=== PATIENT | male | born 1975 | race Caucasian/White ===

== ENCOUNTER 2017-06-27 00:29 | Emergency (ER) | payer OTHER ==
[2017-06-27 00:32] VITALS: TEMP 98.4; BMI 35.5
[2017-06-27 01:03] VITALS: BP 156/97; PULSE 104
--- NOTE | 2017-06-27 01:13 | PDOC ---
History of Present Illness - General Chief Complaint: Irregular Heart Beat Stated Complaint: IRREG HEART BEAT Time Seen by Provider: 06/27/17 01:07 History Source: Patient Exam Limitations: No Limitations - History of Present Illness Initial Comments: 06/27/17 01:10 This is a 41-year-old male who has history of rapid A. fib who comes in complaining of acute onset of rapid A. fib approximately 1 hour prior to coming in. Patient denies any shortness of breath, chest pain. Patient is complaining of palpitations. Patient denies any nausea or diaphoresis. Patient denies any syncope or near-syncope symptoms. Patient's last episode of rapid A. fib was approximately 1 year ago. Patient has had several brief episodes most recent one was a week ago. Patient is otherwise obese and has a history of asthma. Patient's initial cardiogram when he got it showed rapid A. fib at 160 shortly thereafter he converted to a normal sinus rhythm at a rate of 105 PAST MEDICAL HISTORY: no significant history PAST SURGICAL HISTORY: no significant history FAMILY HISTORY: no pertinant history SOCIAL HISTORY: Pt lives with family and is employed. MEDICATIONS: reviewed ALLERGIES: As per nursing notes Review of Systems General: No fevers or chills, no weakness, no weight loss HEENT: No change in vision. No sore throat,. No ear pain CardioVascular: Palpitations Respiratory:No cough, or wheezing. Gastrointestinal: no nausea, vomitting, diarrhea or constipation, No rectal bleeding Genitourinary: No dysuria, hematuria, or frequency Musculoskeletal: No joint or muscle pain or swelling Neurologic: No headache, vertigo, dizziness or loss of consciousness Psychiatric: nor depression Skin: No rashes or easy bruising Endocrine: no increased thirst or abnormal weight change Allergic: no skin or latex allergy All other systems reviewed and normal Exam: General: Well-nourished well-developed individual, no acute distress HEENT: Throat: Normal, tonsils normal, no erythema or exudate Neck: Supple, no meningeal signs, no lymphadenopathy Eyes::Pupils equal reactive and round, extraocular motion intact Chest: Nontender to palpation Cardiac: S1-S2 normal, regular rate and rhythm, no murmurs rubs or gallops Respiratory: Lungs clear to auscultation bilateral Abdomen: Soft, nondistended, normal bowel sounds, nontender to palpation diffusely Extremities: Warm, dry, no cyanosis, clubbing, or edema Skin: No rashes Neuro: Alert and oriented x3, nonfocal exam, grossly intact, normal gait Psych: Normal mood and affect Assessment and plan: This is a 41-year-old male who comes in complaining of palpitations. Patient on arrival was in rapid A. fib at approximately 160. Shortly afterwards patient did self cardiovert and throughout the rest of his stay he has remained at a heart rate of approximately 105. Patient had cardiac and lab done well for which were unremarkable. Patient discharged told to follow -up with a senior specialist. Past History - Past Medical History Allergies/Adverse Reactions: Allergies Allergy/AdvReac Type Severity Reaction Status Date / Time metaproterenol sulfate Allergy Verified 06/27/17 00:33 [From Alupent] Home Medications: Ambulatory Orders Albuterol Sulfate Inhaler - [Ventolin Hfa Inhaler -] 1 puff IH PRN PRN 06/27/17 Fluticasone Prop 0.05% Nasal [Flonase -] 1 - 2 spray NS BID 06/27/17 Fluticasone/Salmeterol [Advair 250-50 Diskus] 1 each IH BID 06/27/17 Montelukast Na [Singulair -] 10 mg PO HS 06/27/17 Asthma: Yes (SEASONAL ALLERGIES) Cardiac Disorders: Yes (AFIB) COPD: No - Suicide/Smoking/Psychosocial Hx Smoking History: Never smoked *Physical Exam - Vital Signs Last Vital Signs Temp Pulse Resp BP Pulse Ox 98.4 F 104 H 20 156/97 97 06/27/17 00:31 06/27/17 01:02 06/27/17 01:02 06/27/17 01:02 06/27/17 01:02 *DC/Admit/Observation/Transfer Diagnosis at time of Disposition: Atrial fibrillation Qualifiers: Atrial fibrillation type: unspecified Qualified Code(s): I48.91 - Unspecified atrial fibrillation - Discharge Dispostion Disposition: HOME Condition at time of disposition: Stable Admit: No - Referrals Referrals: STAFF,NOT ON [Primary Care Provider] - - Patient Instructions Printed Discharge Instructions: DI for Arrhythmias Additional Instructions: It is important that you follow-up with your senior specialist call your senior specialist on Thursday for follow-up appointment. Return to the emergency department immediately with ANY new, persistent or worsening symptoms. Continue any medications as previously prescribed by your physician. You should follow up with your primary doctor as soon as possible regarding today's emergency department visit. . Please make sure your doctor reviews the results of your emergency evaluation. Thank you for coming to the Emergency Department today for your care. It was a pleasure to see you today. Please note that your evaluation is INCOMPLETE until you follow-up with your doctor. - Post Discharge Activity
[2017-06-27 01:37] LABS: BASOPHIL 0.8 % (0-2.0); EOSINOPHIL 5.7 % (0-4.5); MCHC 34.4 g/dl (32.0-35.9); MEAN CELL VOLUME 87.1 fl (80-96); PLATELET COUNT 191 K/MM3 (134-434); RDW 13.4 % (11.9-15.9); WHITE BLOOD COUNT 7.2 K/mm3 (4.0-10.0)
[2017-06-27 02:00] LABS: ALBUMIN 3.6 g/dl (3.4-5.0); ANION GAP 12 (8-16); CALCIUM 8.2 mg/dL (8.5-10.1); CO2 23 mmol/L (21-32); GLUCOSE,RANDOM 121 mg/dL (74-106); SGPT/ALT 44 U/L (12-78)
[2017-06-27 02:03] LABS: ALK PHOS 113 U/L (45-117); BILIRUBIN,TOTAL 0.3 mg/dL (0.2-1.0); CPK 228 IU/L (39-308); TOT PROT 7.1 g/dl (6.4-8.2); TROPONIN I < 0.02 ng/ml (0.00-0.05)
[2017-06-27 02:04] LABS: SGOT/AST 27 U/L (15-37)
--- NOTE | 2017-06-28 10:28 | EKG ---
Test Reason : Blood Pressure : / mmHG Vent. Rate : 161 BPM Atrial Rate : 086 BPM P-R Int : 000 ms QRS Dur : 100 ms QT Int : 300 ms P-R-T Axes : 000 052 051 degrees QTc Int : 491 ms Likely afib with rapid v response NONSPECIFIC ST ABNORMALITY NO PREVIOUS ECGS AVAILABLE Confirmed by MD SUMMERS MARJORY ([id number]) on 06/28/2017 10:27:56 AM Referred By: MD DE JESUS Confirmed By:HELEN SUMMERS MD
--- NOTE | 2017-06-29 16:46 | EKG ---
Test Reason : Blood Pressure : / mmHG Vent. Rate : 105 BPM Atrial Rate : 105 BPM P-R Int : 170 ms QRS Dur : 100 ms QT Int : 352 ms P-R-T Axes : 053 034 045 degrees QTc Int : 465 ms SINUS TACHYCARDIA WHEN COMPARED WITH ECG OF 27-JUN-2017 00:35, SR has replaced probable afib Confirmed by MD SUMMERS MARJORY ([id number]) on 06/29/2017 4:46:09 PM Referred By: MD DE JESUS Confirmed By:HELEN SUMMERS MD
== END 2017-06-27 02:25 | disposition home or self-care (01) ==
LOC: FER 00:29
DX: I48.91 Unspecified atrial fibrillation (principal); J45.998 Other asthma
CPT/HCPCS: 36415; 80053; 82550; 82553; 84484; 85025; 93005; 93010; 99283-25

== ENCOUNTER 2018-05-15 23:02 | Emergency (ER) | payer OTHER ==
[2018-05-15 23:13] VITALS: BP 132/87; PULSE 104; TEMP 98.6; BMI 38.7
--- NOTE | 2018-05-15 23:16 | PDOC ---
History of Present Illness - General Chief Complaint: Irregular Heart Beat Stated Complaint: IRREGULAR HEART BEAT Time Seen by Provider: 05/15/18 23:06 History Source: Patient Exam Limitations: No Limitations - History of Present Illness Initial Comments: 05/15/18 23:30 This is a 42-year-old male who comes in with his for evaluation of palpitations and rapid heartbeat. Patient has a history of intermittent rapid atrial fibrillation. Patient said he feels like he has been going into rapid atrial fibrillation intermittently throughout the day. Here in the emergency room patient at his baseline has a heart rate of around 100 however he has brief episodes of intermittent rapid atrial fibrillation at a rate of approximately 180. During these episodes patient feels some mild shortness of breath and lightheadedness. Patient denies any chest pain during these episodes. Patient was on Cardizem but stopped it about 5 years ago and has had no rapid atrial fibrillation since then. PAST MEDICAL HISTORY: As per history of present illness PAST SURGICAL HISTORY: no significant history FAMILY HISTORY: no pertinant history SOCIAL HISTORY: Pt lives with family and is employed. MEDICATIONS: reviewed ALLERGIES: As per nursing notes ROS General: No fevers or chills, no weakness, no weight loss HEENT: No change in vision. No sore throat,. No ear pain CardioVascular: No chest pain, + mild shortness of breath, + palpitations Respiratory:No cough, or wheezing. Gastrointestinal: no nausea, vomiting, diarrhea or constipation, No rectal bleeding Genitourinary: No dysuria, hematuria, or frequency Musculoskeletal: . No joint pain or swelling Neurologic: No headache, vertigo, dizziness or loss of consciousness Psychiatric: nor depression Skin: No rashes or easy bruising Endocrine: no increased thirst or abnormal weight change Allergic: no skin or latex allergy All other systems reviewed and normal Exam: General: Well-nourished well-developed individual, no acute distress HEENT: Throat: Normal, tonsils normal, no erythema or exudate Neck: Supple, no meningeal signs, no lymphadenopathy Eyes::Pupils equal reactive and round, extraocular motion intact Chest: Nontender to palpation Cardiac: S1-S2 normal, regular rate and rhythm, no murmurs rubs or gallops, mild tachycardia Respiratory: Lungs clear to auscultation bilateral Abdomen: Soft, nondistended, normal bowel sounds, there is no tenderness on palpation diffusely Extremities: Warm, dry, no cyanosis, clubbing, or edema Skin: No rashes Neuro: Alert and oriented x3, CN II - XII intact, nonfocal exam with normal strength, normal sensation, normal reflexes, normal gait, Psych: Normal mood and affect 05/16/18 00:02 EKG shows normal sinus rhythm at a rate of [address]-T wave changes Assessment and plan: This is a 42-year-old male who comes in complaining of palpitations. Patient was noted to have several episodes of rapid A. fib that were brief here in the emergency room. Patient has been on Cardizem in the past for similar symptoms. Patient was restarted on Cardizem a workup was done which showed no acute abnormalities. Patient had a normal CBC and normal chemistry. Patient remained in sinus rhythm. Patient discharged home will follow up with his enterprise resource planner on Thursday. Past History - Past Medical History Allergies/Adverse Reactions: Allergies Allergy/AdvReac Type Severity Reaction Status Date / Time metaproterenol sulfate Allergy Verified 06/27/17 00:33 [From Alupent] shellfish derived Allergy Verified 05/15/18 23:03 Home Medications: Ambulatory Orders Albuterol Sulfate Inhaler - [Ventolin Hfa Inhaler -] 1 puff IH PRN PRN 06/27/17 Aspirin [ASA -] 325 mg PO DAILY 05/15/18 Diltiazem [Cardizem -] 30 mg PO BID #60 tablet 05/16/18 Asthma: Yes (SEASONAL ALLERGIES) Cardiac Disorders: Yes (AFIB) COPD: No Other medical history: SLEEP APNEA - Suicide/Smoking/Psychosocial Hx Smoking History: Never smoked *Physical Exam - Vital Signs Last Vital Signs Temp Pulse Resp BP Pulse Ox 98.6 F 104 H 16 132/87 97 05/15/18 23:08 05/15/18 23:08 05/15/18 23:08 05/15/18 23:08 05/15/18 23:08 ED Treatment Course - LABORATORY CBC & Chemistry Diagram: 05/15/18 23:35 05/15/18 23:35 - ADDITIONAL ORDERS Additional order review: Laboratory Results 05/15/18 23:35 Sodium 142 Potassium 3.6 Chloride 109 H Carbon Dioxide 27 Anion Gap 7 L BUN 12 Creatinine 1.1 Creat Clearance w eGFR > 60 Random Glucose 113 H Calcium 8.7 Total Bilirubin 0.3 AST 27 ALT 54 Alkaline Phosphatase 125 H Total Protein 7.1 Albumin 3.8 05/15/18 23:35 RBC 5.27 MCV 89.5 MCHC 33.8 RDW 12.6 MPV 7.5 Neutrophils % 54.8 Lymphocytes % 32.3 Monocytes % 8.4 Eosinophils % 3.4 Basophils % 1.1 - Medications Given in the ED: ED Medications Discontinued Medications Generic Name Dose Route Start Last Admin Trade Name Chato PRN Reason Stop Dose Admin Diltiazem HCl 60 mg 05/15/18 23:21 05/15/18 23:37 Cardizem - PO 05/15/18 23:22 60 mg ONCE ONE Administration Sodium Chloride 1,000 mls @ 1,000 mls/hr 05/16/18 00:04 05/16/18 00:09 Normal Saline - IV 05/16/18 01:03 1,000 mls/hr .Q1H ONE Administration *DC/Admit/Observation/Transfer Diagnosis at time of Disposition: Irregular heartbeat Atrial fibrillation Qualifiers: Atrial fibrillation type: paroxysmal Qualified Code(s): I48.0 - Paroxysmal atrial fibrillation - Discharge Dispostion Disposition: HOME Condition at time of disposition: Stable Decision to Admit order: No - Prescriptions Prescriptions: Diltiazem [Cardizem -] 30 mg PO BID #60 tablet - Referrals Referrals: Debra Deluca [Primary Care Provider] - - Patient Instructions Printed Discharge Instructions: DI for Arrhythmias Additional Instructions: It is important to call your enterprise resource planner on Thursday and see if your enterprise resource planner wants to be started chew on Cardizem as you did have several episodes here in the emergency room of rapid atrial fibrillation. If symptoms returned take Cardizem 1 tablet as often as twice a day I sent a prescription two-year pharmacy. Return to the emergency department immediately with ANY new, persistent or worsening symptoms. Continue any medications as previously prescribed by your physician. You should follow up with your primary doctor as soon as possible regarding today's emergency department visit. . Please make sure your doctor reviews the results of your emergency evaluation. Thank you for coming to the Emergency Department today for your care. It was a pleasure to see you today. Please note that your evaluation is INCOMPLETE until you follow-up with your doctor. - Post Discharge Activity
[2018-05-15] MEDS ORDERED: dilTIAZem HCL 60 MG TABLET (FP) PO ONE (23:21)
[2018-05-15 23:42] LABS: BASO % 1.1 % (0-2.0); EOS % 3.4 % (0-4.5); HEMATOCRIT 47.2 % (35.4-49); HEMOGLOBIN 15.9 GM/dl (11.7-16.9); LYMPH % 32.3 % (8-40); MCH 30.2 pg (25.7-33.7); MCHC 33.8 g/dl (32.0-35.9); MEAN CELL VOLUME 89.5 fl (80-96); MEAN PLT VOLUME 7.5 fl (7.5-11.1); MONO % 8.4 % (3.8-10.2); NEUT % 54.8 % (42.8-82.8); PLATELET COUNT 224 K/MM3 (134-434); RBC 5.27 M/mm3 (4.00-5.60); RDW 12.6 % (11.9-15.9); WHITE BLOOD COUNT 7.6 K/mm3 (4.0-10.8)
[2018-05-16] MEDS ORDERED: SODIUM CHLORIDE 1,000 ML IV ONE (00:04)
[2018-05-16 01:16] LABS: ALBUMIN 3.8 g/dl (3.4-5.0); ALK PHOS 125 U/L (45-117); ANION GAP 7 MMOL/L (8-16); BILIRUBIN,TOTAL 0.3 mg/dL (0.2-1); BLOOD UREA NITROGEN 12 mg/dL (7-18); CALCIUM 8.7 mg/dL (8.5-10.1); CHLORIDE 109 mmol/L (98-107); CO2 27 mmol/L (21-32); CREATININE 1.1 mg/dL (0.55-1.3); GLUCOSE,RANDOM 113 mg/dL (74-106); POTASSIUM 3.6 mmol/L (3.5-5.1); SGOT/AST 27 U/L (15-37); SGPT/ALT 54 U/L (13-61); SODIUM 142 mmol/L (136-145); TOT PROT 7.1 g/dl (6.4-8.2)
--- NOTE | 2018-05-22 17:37 | EKG ---
Test Reason : Blood Pressure : / mmHG Vent. Rate : 109 BPM Atrial Rate : 109 BPM P-R Int : 158 ms QRS Dur : 098 ms QT Int : 326 ms P-R-T Axes : 049 031 041 degrees QTc Int : 439 ms SINUS TACHYCARDIA WITH FREQUENT PREMATURE VENTRICULAR COMPLEXES OTHERWISE NORMAL ECG WHEN COMPARED WITH ECG OF 27-JUN-2017 01:02, PREMATURE VENTRICULAR COMPLEXES ARE NOW PRESENT BASELINE ARTIFACT Confirmed by JORDAN HERNANDEZ, NILES ([id number]) on 05/22/2018 5:36:53 PM Referred By: MD LIRIANO Confirmed By:NILES ORTEGA MD
== END 2018-05-16 02:04 | disposition home or self-care (01) ==
LOC: FER 23:02
PROC: 3E0337Z Introduction of Electrolytic and Water Balance Substance into Peripheral Vein, Percutaneous Approach (ICD-10-PCS; principal; 2018-05-15)
DX: I48.0 Paroxysmal atrial fibrillation (principal); J30.2 Other seasonal allergic rhinitis
CPT/HCPCS: 36415; 80053; 82550; 82553; 84484; 85025; 93005; 99282-25; J7030